=== PATIENT | female | born 1950 | race Hispanic/Latino ===

== ENCOUNTER → 2025-01-04 | Outpatient (CLI) | payer OTHER ==
--- NOTE | 2025-01-04 16:41 | HMCIMG ---
CT HEART SAVER PROMOTIONAL HISTORY: Cardiac calcification scoring. FINDINGS: The cardiac calcification scoring is 79.5. LM = 5.1, LAD = 3.1, CX = 3.2, RCA = 68.2. Limited examination of the heart was performed. The study is done for additional or incidental findings. IMPRESSION: Linear bilateral lower lobe scarring and miniscule bilateral breast calcifications. No other additional findings.
== END | disposition home or self-care (01) ==
LOC: RAH 15:16
DX: Z13.6 Encounter for screening for cardiovascular disorders (principal); J98.4 Other disorders of lung
CPT/HCPCS: 75571